=== PATIENT | male | born 1980 | race Caucasian/White ===

== ENCOUNTER 2019-06-05 20:49 | Emergency (ER) | payer OTHER ==
[~2019-06-05] VITALS: Ht 188 cm; Wt 107.0 kg
[2019-06-05] MEDS ORDERED: TAPAZOLE5 MG PO (21:10)
[2019-06-05] MEDS ORDERED: PROPRANOLOL 1010 MG PO (21:10)
[2019-06-05] MEDS ORDERED: CILOXAN5 ML INTRAOCULR (21:42)
[2019-06-05] MEDS ORDERED: HYDROCODON-ACE1 EAC8 PO (21:42)
[2019-06-05 21:58] VITALS: BP 168/95
== END 2019-06-05 22:30 | disposition home or self-care (01) ==
LOC: M.ERS 20:49
DX: S05.01XA Injury of conjunctiva and corneal abrasion without foreign body, right eye, initial encounter (principal); X58.XXXA Exposure to other specified factors, initial encounter; Y93.89 Activity, other specified; Y92.89 Other specified places as the place of occurrence of the external cause; Y99.8 Other external cause status

== ENCOUNTER 2019-10-11 16:23 | Emergency (ER) | payer OTHER ==
[~2019-10-11] VITALS: Ht 188 cm; Wt 97.5 kg
[~2019-10-11 16:23] MED LIST: CILOXAN5 ML INTRAOCULR; HYDROCODON-ACE1 EAC8 PO; PROPRANOLOL 1010 MG PO; TAPAZOLE5 MG PO
[2019-10-11] MEDS ORDERED: NORCO 5-325 TA1 EAC1 PO (17:33)
[2019-10-11] MEDS ORDERED: BACTRIM DS TAB1 EAC1 PO (17:33)
[2019-10-11] MEDS ORDERED: KEFLEX500 M1 PO (17:33)
[2019-10-11] MEDS ORDERED: IBUPROFEN 800800 M1 PO (17:33)
[2019-10-11 19:17] VITALS: BP 117/81
== END 2019-10-11 19:18 | disposition home or self-care (01) ==
LOC: M.ERS 16:23
DX: S62.631B Displaced fracture of distal phalanx of left index finger, initial encounter for open fracture (principal); L03.012 Cellulitis of left finger; F17.210 Nicotine dependence, cigarettes, uncomplicated; W23.0XXA Caught, crushed, jammed, or pinched between moving objects, initial encounter; Y93.89 Activity, other specified; Y92.89 Other specified places as the place of occurrence of the external cause; Y99.8 Other external cause status